=== PATIENT | male | born 1935 | race Caucasian/White ===

== ENCOUNTER → 2016-08-14 | Outpatient (CLI) | payer MEDICARE, OTHER ==
[~2016-08-14] MED LIST: CETI-262 PO; DPAS20025 PO; LANS30CA PO; MMT17NA; MULT-954 PO; OMEP20CA12 PO; RANI150T11 PO; ROSU20TA PO
--- NOTE | 2016-08-14 12:22 | Diagnostic Imaging Report ---
INDICATION: Cough. COMPARISON: 07/18/2015. FINDINGS: In the left lung base, there is ill-defined nodular opacity, which is new since prior examination. No pleural effusion or pneumothorax. Stable cardiomegaly with changes of CABG. Stable configuration of the sternal wires. Atherosclerotic aorta. IMPRESSION: 1. Ill-defined nodular opacity in the left lung base could represent a focus of infection. Recommend followup PA and lateral chest radiograph in 4 weeks after appropriate medical management. If this nodule persists at that time, CT chest may be warranted. Dictated by: Dictated on workstation # [id number]
== END ==
LOC: RAD 11:38
PROVIDERS: ATTEND Family Medicine
DX: R05 Cough (principal)
CPT/HCPCS: 71020

== ENCOUNTER → 2016-09-12 | Outpatient (CLI) | payer MEDICARE, OTHER ==
--- NOTE | 2016-09-12 18:48 | Diagnostic Imaging Report ---
INDICATION: Cough. TECHNIQUE: Two-view chest at 3:45 p.m. CORRELATION STUDY: 08/14/2016. FINDINGS: Post sternotomy and coronary bypass changes. Heart size is borderline enlarged with vasculature normal. Lung thompson are mildly hyperinflated but overall relatively clear of infiltrate. Faint ill-defined nodular density at the left costophrenic angle superimposed over the anterior left seventh rib is relatively stable. IMPRESSION: 1. Negative for acute abnormality of the chest. Lung thompson are mildly hyperinflated. Ill-defined nodular density at the left lung base is present. Given chronic confluence but otherwise no definitive abnormality and questionable pulmonary nodule, if further assessment is desired, CT imaging of the chest recommended. 2. Post cardiac bypass changes with borderline heart size. No evidence for failure. Dictated on workstation # [id number]
== END ==
LOC: RAD 15:25
PROVIDERS: ATTEND Family Medicine
DX: R05 Cough (principal)
CPT/HCPCS: 71020